=== PATIENT | female | born 2000 ===

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

== ENCOUNTER 2021-01-29 15:52 | Emergency (ER) | payer MEDICAID, SELFPAY ==
--- NOTE | 2021-01-29 16:00 | DI.US_ITS ---
Exam(s) US OB 1ST TRIMESTER EXAM: US OB 1ST TRIMESTER CLINICAL HISTORY: bleeding, cramping first trimester. COMPARISON: No exams were available for comparison TECHNIQUE: Transabdominal Transvaginal first trimester obstetrical ultrasound performed. FINDINGS: The uterus is normal in size, measuring 9.5 x 4.2 x 5.2 cm. The endometrial stripe appears homogeneo us at 7 millimeters in thickness. There is no gestational sac. The ovaries are normal in normal in size and appearance. There is no free fluid. No ectopic is seen. IMPRESSION: No evidence of intrauterine or ectopic . Homogeneous endometrium. DATA REPOSITORY:
[2021-01-29 16:02] VITALS: BP 107/82; PULSE 113; TEMP 37.6; O2SAT 99
--- NOTE | 2021-01-29 16:14 | W.ED.GENAD ---
Discharge Plan Disposition Patient Disposition: HOME Condition: Stable Discharge Details Clinical Impression: Spontaneous Primary Care Provider: Unknown,Unknown ED Provider: Roula Madera Home Meds and New Rx's Prescriptions: No Action No Known Home Meds RF: 0 Discharge Instructions Instructions: Miscarriage (ED) Additional Instructions: Your labs and imaging suggests that you are having a miscarriage. Please call [facility] tomorrow to schedule follow up appointment. If you develop fevers/chills, increased pain, heavy bleeding, syncope or other new/worsneing symptoms please seek care urgently once again Referrals: Noa Aguilar MD [ [facility] STAFF PHYSICIAN] - Medical Decision Making Patient is a pleasant 20 year old female , presenting today with c/c of vaginal bleeding and cramping in first trimester. Jluis estimates gestational age at 8 weeks. Was seen by OBGYN this AM, labs drawn and Rhogam shot delivered. HAve requested these records from [facility]. She is concerned that she has continued bleeding, worried she is having a miscarriage and is wanting a definitive answer to this quesiton. Has not had US as of yet. Last PG was uncomplicated. States she has gone through 3 pads total today but feels that bleeding is increasing. On exam, patient appears nontoxic. She is tachycardic at 113. She is not lightheaded, breathing comfortably and nonlabored. US is available, need to evaluate for ectopic vs. IUP. Have requested records from [facility]. Her history is not worrying at this time for severe bleeding. Initial temp was an error, temp 36.7. MATERNAL: Uterus: Transabdominal and transvaginal exam is performed. The uterus appears normal. The endometrium has a normal appearance with a thickness of about 7 mm. Normal appearance of the bilateral ovaries. Vascular flow is identified appears to be within normal limits. Cervix: Unremarkable. Right adnexa: Unremarkable. Left adnexa: Unremarkable. Intraperitoneal space: No intraperitoneal free fluid. Other findings: Tech note. I am not sure what 'CO' means in your notes. IMPRESSION: No IUP. Differential includes too early to see, missed , and potentially ectopic. Reviewed notes, Hcg 327. Paitent likely having spontaneous . Blood type a O-, she given RhoGam at outside facility prior to arrival. On exam, bleeding is minimal with some amount of spotting in her pad at this time. Patient hemodynamically stable. Heart rate is downtrending. I related to be entering the room for spontaneous with the patient. She is moving more locally, she would like to follow-up with [facility]. Number given, patient will call tomorrow to schedule appointment. Strict return precautions were discussed. All concerns were addressed and she is in agreement this plan. HPI General Mode of arrival: ambulatory. Date/Time Provider Initiated Documentation: 01/29/21 16:01. Limitations to Documentation: no limitations. Information obtained by: patient and RN notes reviewed. History of Present Illness 20 year old F presents to the emergency department with the chief complaint of vaginal bleeding, described as mild (no discomfort currently), Quality is described as other (cramping), and is localized to the abdomen. Patient reports no radiation. Patient started experiencing this day(s) and it has been constant. No relieving factors improve symptom(s), No exacerbating factors reported . Patient notes no other symptoms.. 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 Review of Systems Constitutional Constitutional: Reports as per HPI, Denies chills, Denies fatigue, Denies fever(s), Denies headache(s) and Denies weakness ENT Ears, Nose, Mouth, and Throat: Denies dizziness and Denies headache(s) Cardiovascular Cardiovascular: Reports as per HPI, Denies chest pain, Denies syncope and Denies dyspnea Respiratory Respiratory: Reports as per HPI, Denies cough and Denies dyspnea Gastrointestinal Gastrointestinal: Reports as per HPI Genitourinary Genitourinary: Reports as per HPI Musculoskeletal Musculoskeletal: Reports as per HPI and Denies back pain Integumentary/Breasts Skin/Breast: Reports as per HPI and Denies rash Neurologic Neurologic: Reports as per HPI, Denies dizziness, Denies syncope, Denies headache(s) and Denies weakness Endocrine Endocrine: Denies fatigue [facility] [place] Social History Smoking/Tobacco Use Status: Never Smoking risk assessment performed?: Yes Alcohol Intake: never Drug use: Never Substance use type: does not use Do you feel safe at home: Yes Do you feel safe in your relationship?: Yes Exam Const General: cooperative, healthy appearing, comfortable, no acute distress and well developed Nutritional Appearance: average body habitus and well nourished Orientation: alert and awake HENWI Head: normal to inspection Mouth: moist mucous membranes Resp Effort & Inspection: normal respiratory effort, able to speak in complete sentences and no respiratory distress Auscultation: clear to auscultation bilaterally, no rales, no rhonchi and no wheezes Cardio Rate: regular rate Rhythm: regular rhythm Heart Sounds: S1 normal and S2 normal GI Inspection: normal to inspection Palpation: soft, no hepatosplenomegaly and nontender Skin General skin exam: no rashes or lesions noted Trauma: no lacerations or abrasions Neuro General: patient alert and patient awake Cognition: normal cognition Speech: speech normal Gait: normal gait Psych Appearance: grossly normal and well kempt Mental Status: mental status grossly normal Speech and Movement: speech and movement normal Course Vital Signs Vital signs: Vital Signs Temperature 37.6 C H 01/29/21 16:02 Pulse 113 H 01/29/21 16:02 Blood Pressure 107/82 01/29/21 16:02 Pulse Oximetry 99 01/29/21 16:02 Temperature 37.6 C H 01/29/21 16:02 Temperature Source Temporal Artery Scan 01/29/21 16:02 Pulse 113 H 01/29/21 16:02 Respiratory Effort Non-Labored 01/29/21 16:05 Blood Pressure 107/82 01/29/21 16:02 Blood Pressure Position Sitting 01/29/21 16:02 Pulse Oximetry 99 01/29/21 16:02 Oxygen Delivery Method Room Air 01/29/21 16:02 Oxygen Flow Rate 0 01/29/21 16:02 Pain Level 0 01/29/21 16:06
--- NOTE | 2021-01-29 17:39 | DI.VRAD_ITS ---
PROCEDURE INFORMATION: Exam: US First Trimester, Transabdominal Exam date and time: 01/29/2021 4:13 PM Age: 20 years old Clinical indication: Lmp or gestational age (in weeks): 8+1 by lmp 12/03/2020; Antepartum complications; Patient HX: + preg test at home last week, bleeding and cramping x 1-2 days, patient went to different hospital to have blood work, results not available at time of study. TECHNIQUE: Imaging protocol: Real-time transabdominal obstetrical ultrasound of the maternal pelvis and a first trimester , less than 14 weeks 0 days, with image documentation. COMPARISON: No relevant prior studies available. FINDINGS: GESTATION: NA BIOMETRY: NA MATERNAL: Uterus: Transabdominal and transvaginal exam is performed. The uterus appears normal. The endometrium has a normal appearance with a thickness of about 7 mm. Normal appearance of the bilateral ovaries. Vascular flow is identified appears to be within normal limits. Cervix: Unremarkable. Right adnexa: Unremarkable. Left adnexa: Unremarkable. Intraperitoneal space: No intraperitoneal free fluid. Other findings: Tech note. I am not sure what 'CO' means in your notes. IMPRESSION: No IUP. Differential includes too early to see, missed , and potentially ectopic. Dictated and Authenticated by: Rip Post MD. Ordering:KIM Celeste MD
--- NOTE | 2021-01-30 12:53 | NUR.NOTE ---
[id number] send to [facility]
== END 2021-01-30 17:55 | disposition home or self-care (01) ==
PROVIDERS: Emergency Provider Physician Assistant
DX: O03.9 Complete or unspecified spontaneous abortion without complication (principal); Z3A.08 8 weeks gestation of pregnancy
CPT/HCPCS: 99284; 76801